=== PATIENT | female | born 1960 | race Caucasian/White ===

== ENCOUNTER 2016-04-23 19:52 | Emergency (ER) | payer OTHER, BC ==
[~2016-04-23] VITALS: Ht 167.6 cm; Wt 114.2 kg
[~2016-04-23 19:52] MED LIST: ADVAIR HFA120 INHALA IH; AERONEB GO NEB1 EACH MC; ALBUTEROL17 GM IH; CEFDINIR300 MG PO; COGENTIN0.5 MG PO; CRESTOR10 MG PO; DILAUDID2 MG PO; DUONEB 2.5-0.5 M3 ML AEROSOL; EPIPEN ADU0.3 MG/0.3 IM; FLEXERIL10 MG PO; KLONOPIN1 MG PO; KLONOPIN2 MG PO; LAMICTAL100 MG PO; LAMICTAL150 M1 PO; LATUDA40 MG PO; LEVOTHYROXINE25 MCG PO; LEVSIN-SL0.125 MG SL; MINIPRESS1 MG PO; MOTRIN400 MG PO; OMEPRAZOLE40 M1 PO; PREDNISONE10 MG PO; PREDNISONE20 MG PO; RESTORIL30 MG PO; SAPHRIS5 MG SL; SIMVASTATIN10 MG PO; SYNTHROID25 MCG PO; TESSALON200 MG PO; TYLENOL WITH C1 EACH PO; ULTRAM50 MG PO; VALIUM5 MG PO; VENTOLIN HFA18 GM IH; VENTOLIN17 GM IH; VIIBRYD10 MG PO; ZOCOR40 MG PO; ZOFRAN4 MG PO
[2016-04-23 20:46] LABS: HEMATOCRIT 44.5 % (36.0-46.0); MCH 29.4 PG (29.0-34.0); MEAN PLAT.VOLUME 9.2 uM^3 (9.5-12.4); PLATELET COUNT 217 K/uL (156-360); RBC DIS.WIDTH-CV 12.3 % (11.8-14.6); RBC DIS.WIDTH-SD 40.3 % (39-53)
[2016-04-23 20:49] LABS: CHLORIDE 105 mEq/L (99-109); POTASSIUM 4.4 mEq/L (3.7-5.4); SODIUM 140 mEq/L (136-147)
[2016-04-23 20:51] LABS: GLUCOSE 119 mg/dL (70-99)
[2016-04-23 20:53] LABS: ANION GAP 11 MEQ/L (2-14); TOTAL BILIRUBIN 0.8 mg/dL (0.0-1.0)
[2016-04-23 20:55] LABS: ALKALINE PHOSPHATASE 89 IU/L (3-129); GFR ESTIMATE (CALCULATED) 46 mL/min/
[2016-04-23 20:56] LABS: QUANTITATIVE HCG 4.1 MIU/ML; UREA NITROGEN (BUN) 21 mg/dL (9-23)
[2016-04-23 21:33] LABS: ADD MIUA? YES; BILIRUBIN NEGATIVE; BLOOD SMALL; COLOR YELLOW ((YELLOW)); GLUCOSE (STRIP) NEGATIVE; KETONES NEGATIVE; LEUKOCYTES NEGATIVE; NITRITE NEGATIVE; PROTEIN (STRIP) NEGATIVE; SPECIFIC GRAVITY 1.025 (1.000-1.030); UROBILINOGEN 0.2 MG/DL (0.2-1.0)
[2016-04-23 21:53] LABS: BACTERIA NONE SEEN /HPF; EPITHELIAL CELLS RARE /HPF; MUCUS TRACE /LPF; RED BLOOD CELLS 0-5 /HPF (0-5); UCUL ADDED? NO; UNCLASSIFIED CASTS 0-5 /LPF; UNCLASSIFIED CRYSTALS 1+ /HPF; WHITE BLOOD CELLS 0-5 /HPF (0-5)
[2016-04-24 00:09] VITALS: BP 115/68
== END 2016-04-24 00:12 | disposition home or self-care (01) ==
LOC: EME 19:52
DX: R10.9 Unspecified abdominal pain (principal); R19.7 Diarrhea, unspecified; R11.10 Vomiting, unspecified; K21.9 Gastro-esophageal reflux disease without esophagitis; R56.9 Unspecified convulsions; Z85.41 Personal history of malignant neoplasm of cervix uteri; Z85.42 Personal history of malignant neoplasm of other parts of uterus
CPT/HCPCS: 74177; 80053; 81003; 84702; 85027; 99281; 99285; J2405; J3010; J7030

== ENCOUNTER → 2016-12-20 | Outpatient (CLI) | payer OTHER, BC ==
[~2016-12-20] VITALS: Ht 168.9 cm; Wt 104.3 kg
[~2016-12-20] MED LIST changes: +PROAIR HFA8.5 GM IH; +SYMBICORT60 INHALAT IH; +VITAMIN D31000 UNIT PO
== END | disposition home or self-care (01) ==
LOC: AMB 11:30
DX: Z12.11 Encounter for screening for malignant neoplasm of colon (principal); D12.2 Benign neoplasm of ascending colon; K62.1 Rectal polyp; Z86.010 Personal history of colon polyps; K20.9 Esophagitis, unspecified; K29.70 Gastritis, unspecified, without bleeding; R11.0 Nausea; Z87.11 Personal history of peptic ulcer disease; K64.8 Other hemorrhoids; N18.3 Chronic kidney disease, stage 3 (moderate); Z80.0 Family history of malignant neoplasm of digestive organs; M54.5 Low back pain; J45.20 Mild intermittent asthma, uncomplicated; M62.838 Other muscle spasm; F31.9 Bipolar disorder, unspecified; Z87.891 Personal history of nicotine dependence; Z88.8 Allergy status to other drugs, medicaments and biological substances; Z91.030 Bee allergy status; Z91.041 Radiographic dye allergy status; Z91.09 Other allergy status, other than to drugs and biological substances
CPT/HCPCS: 88305; 88342 TC

== ENCOUNTER 2017-02-26 18:33 | Emergency (ER) | payer OTHER, BC ==
[~2017-02-26] VITALS: Ht 167.6 cm; Wt 107.3 kg
[2017-02-26] MEDS ORDERED: ZOFRAN ODT8 MG PO (20:54)
[2017-02-26 21:06] LABS: HEMATOCRIT 45.7 % (36.0-46.0); MCH 30.7 PG (29.0-34.0); MCV 87.5 FL (83-99); PLATELET COUNT 242 K/uL (156-360); RBC DIS.WIDTH-CV 11.9 % (11.8-14.6); RBC DIS.WIDTH-SD 38.1 % (39-53); RED BLOOD COUNT 5.22 M/uL (3.80-5.20); WHITE BLOOD COUNT 15.3 K/uL (4.1-10.2)
[2017-02-26 21:17] LABS: ALBUMIN 4.9 g/dL (3.2-4.8); CHLORIDE 105 mEq/L (99-109); POTASSIUM 4.8 mEq/L (3.7-5.4); SODIUM 138 mEq/L (136-147)
[2017-02-26 21:19] LABS: GLUCOSE 118 mg/dL (70-99); TOTAL PROTEIN 8.6 g/dL (6.4-8.3)
[2017-02-26 21:21] LABS: TOTAL BILIRUBIN 0.9 mg/dL (0.0-1.0)
[2017-02-26 21:23] LABS: ALKALINE PHOSPHATASE 90 IU/L (3-129); CREATININE 1.3 mg/dL (0.6-1.3); GFR ESTIMATE (CALCULATED) 45 mL/min/
[2017-02-26 21:24] LABS: UREA NITROGEN (BUN) 20 mg/dL (9-23)
[2017-02-26 21:25] LABS: AST (GOT) 21 IU/L (2-34)
[2017-02-26 21:26] LABS: ALT (GPT) 27 IU/L (3-49); LIPASE 18 U/L (1.0-51.0)
[2017-02-27 01:06] VITALS: BP 148/87
== END 2017-02-27 01:09 | disposition home or self-care (01) ==
LOC: EME 18:33
PROVIDERS: Emergency Medicine Emergency Medical Services
DX: R11.2 Nausea with vomiting, unspecified (principal); R19.7 Diarrhea, unspecified; E86.0 Dehydration; R10.13 Epigastric pain; N18.9 Chronic kidney disease, unspecified; J45.909 Unspecified asthma, uncomplicated; F32.9 Major depressive disorder, single episode, unspecified; F43.10 Post-traumatic stress disorder, unspecified; K21.9 Gastro-esophageal reflux disease without esophagitis; R56.9 Unspecified convulsions; Z85.41 Personal history of malignant neoplasm of cervix uteri; Z87.891 Personal history of nicotine dependence; Z88.5 Allergy status to narcotic agent; Z88.1 Allergy status to other antibiotic agents; Z88.8 Allergy status to other drugs, medicaments and biological substances
CPT/HCPCS: 80053; 83690; 85027; 99281; 99285; J2405; J7040

== ENCOUNTER 2017-03-29 12:09 | Emergency (ER) | payer OTHER, BC ==
[~2017-03-29] VITALS: Ht 167.6 cm; Wt 111.4 kg
[~2017-03-29 12:09] MED LIST changes: +ZOFRAN ODT8 MG PO
[2017-03-29] MEDS ORDERED: TRAMADOL HCL50 MG PO (14:36)
[2017-03-29 14:54] VITALS: BP 130/86
== END 2017-03-29 14:58 | disposition home or self-care (01) ==
LOC: EME 12:09
DX: M25.562 Pain in left knee (principal); K21.9 Gastro-esophageal reflux disease without esophagitis; N18.9 Chronic kidney disease, unspecified; M19.90 Unspecified osteoarthritis, unspecified site; J45.909 Unspecified asthma, uncomplicated; F32.9 Major depressive disorder, single episode, unspecified; F41.9 Anxiety disorder, unspecified; F43.10 Post-traumatic stress disorder, unspecified; Z87.891 Personal history of nicotine dependence; Z98.890 Other specified postprocedural states; Z85.41 Personal history of malignant neoplasm of cervix uteri; Z85.42 Personal history of malignant neoplasm of other parts of uterus; Z90.710 Acquired absence of both cervix and uterus; Z91.5 Personal history of self-harm; Z88.1 Allergy status to other antibiotic agents; Z88.5 Allergy status to narcotic agent; Z91.041 Radiographic dye allergy status; Z88.6 Allergy status to analgesic agent; Z88.8 Allergy status to other drugs, medicaments and biological substances
CPT/HCPCS: 93971; 99281; 99284

== ENCOUNTER 2017-07-11 21:35 | Emergency (ER) | payer OTHER, BC ==
[~2017-07-11] VITALS: Ht 167.6 cm; Wt 114.0 kg
[~2017-07-11 21:35] MED LIST changes: +TRAMADOL HCL50 MG PO
[2017-07-11] MEDS ORDERED: ULTRAM50 MG PO (22:58)
[2017-07-11 23:44] VITALS: BP 142/82
== END 2017-07-11 23:46 | disposition home or self-care (01) ==
LOC: EME 21:35
DX: S80.02XA Contusion of left knee, initial encounter (principal); W01.0XXA Fall on same level from slipping, tripping and stumbling without subsequent striking against object, initial encounter; Z88.5 Allergy status to narcotic agent; Z88.1 Allergy status to other antibiotic agents; Z88.8 Allergy status to other drugs, medicaments and biological substances
CPT/HCPCS: 73564; 99281; 99284